=== PATIENT | female | born 1985 | race Caucasian/White ===

== ENCOUNTER 2016-06-26 23:33 | Emergency (ER) | payer BC, MEDICARE ==
[2016-06-26 21:06] LABS: BASOPHILS 1.1 %; BASOPHILS ABSOLUTE 0.04 10/3/uL (0.0-0.16); EOSINOPHILS 5.2 %; EOSINOPHILS ABSOLUTE 0.19 10/3/uL (0.0-0.53); HEMATOCRIT 46.1 % (36.0-48.0); IMMATURE GRANULOCYTES 1.7 %; IMMATURE GRANULOCYTES ABSOLUTE 0.06 10/3/uL (0.0-0.11); LYMPHOCYTES 9.9 %; LYMPHOCYTES ABSOLUTE 0.36 10/3/uL (0.67-4.30); MEAN CORPUS HGB CONC 32.5 g/dL (32.0-36.0); MEAN CORPUSCULAR HEMOGLOB 29.5 pg (26.0-34.0); MEAN PLATELET VOLUME 9.5 fL (9.2-13.0); MONOCYTES 13.8 %; NEUTROPHILS 68.3 %; NEUTROPHILS ABSOLUTE 2.47 10/3/uL (2.02-8.40); PLATELET COUNT 377 10/3/uL (150-400); RBC DISTRIBUTION WIDTH 13.1 % (12.0-16.0); RED CELL COUNT 5.08 10/6/uL (4.0-5.6)
[2016-06-26 21:08] LABS: ER CBC TAT 0 Hrs 10 Mins; MANUAL DIFF NO %; MEAN CORPUSCULAR VOLUME 90.7 fL (80-100); WHITE BLOOD CELLS 3.6 10/3/uL (4.5-10.5)
[2016-06-26 21:15] LABS: CALCIUM, SERUM 8.7 MG/DL (8.5-10.4); CHLORIDE, SERUM 111 MMOL/L (96-112); CO2 (CARBON DIOXIDE) 27 MMOL/L (24-34); CREATININE 1.04 MG/DL (0.55-1.02); GFR AFRICAN AMERICAN 83 ML/MIN (>=60); GFR NON AFRICAN AMERICAN 72 ML/MIN (>=60); GLUCOSE, SERUM 85 MG/DL (60-99); SODIUM, SERUM 144 MMOL/L (135-148)
[2016-06-26 21:16] LABS: BUN (BLOOD UREA NITROGEN) 18 MG/DL (6-23)
[~2016-06-26 23:33] MED LIST: ACTONEL150 MG PO; ADDERALL20 MG PO; ADDERXR30 PO; AMBIEN CR12.5 MG PO; KLONO2 PO; NECON1 TAB PO; OPANA ER20 MG PO; OPANA ER40 MG PO; PRISTIQ100 MG PO; REBIF; REBIF SC; SYN88 PO; SYNTHROID175 MCG PO; TOPXL25 PO; TRAZ100 PO; ZOCOR40 PO; ZYRTEC ALLGY10 MG PO
[2016-06-27 01:08] LABS: ASCORBIC ACID (UR NOT ORDER) NEG (NEG); BILIRUBIN, URINE NEGATIVE (NEG); ER URINALYSIS TAT 0 Hrs 00 Mins; KETONE, URINE NEGATIVE (NEG); LEUKOCYTE ESTERASE(NOT OR NEG (NEG); NITRITE (URINE) NEG (NEG); WBC (NOT ORDERED) (RFLEX) 5 (0-5)
== END 2016-06-27 01:32 | disposition home or self-care (01) ==
LOC: ER 23:33
PROVIDERS: Nurse Practitioner
DX: G43.909 Migraine, unspecified, not intractable, without status migrainosus (principal); G35 Multiple sclerosis; R30.0 Dysuria; F32.9 Major depressive disorder, single episode, unspecified; Z88.5 Allergy status to narcotic agent; Z88.8 Allergy status to other drugs, medicaments and biological substances; Z79.899 Other long term (current) drug therapy
CPT/HCPCS: 80048; 81001; 84703; 85025; 96374; 99284; J1200; J1885; J2765